=== PATIENT | male | born 1940 | race Two or more races ===

== ENCOUNTER 2016-11-17 01:58 | Emergency (ER) | payer MEDICARE, OTHER ==
[~2016-11-17] VITALS: Ht 144.8 cm; Wt 81.6 kg
[~2016-11-17 01:58] MED LIST: ASPI-807 PO; CLON0.1T PO; HYDR12.55 PO; LORA0.5T PO; LOSA25TA13 PO; METO-304 PO; OMEP20CA10 PO; SIMV40TA5 PO
[2016-11-17 02:16] VITALS: BP 145/85
--- NOTE | 2016-11-17 02:22 | NUR ---
UPON SITTING IN THE ROOM; PT DEMANDS "I WANNA SEE THE DOCTOR NOW AND I CANT WAIT. IF THE DOCTOR IS NOT COMING NOW THEN AM LEAVING" AND WALKED OUT.
== END 2016-11-17 02:25 | disposition left against medical advice (07) ==
LOC: ER 01:58
DX: Z53.21 Procedure and treatment not carried out due to patient leaving prior to being seen by health care provider (principal)
CPT/HCPCS: A4606; Z7610

== ENCOUNTER 2017-09-11 19:05 | Emergency (ER) | payer MEDICARE, OTHER ==
[~2017-09-11] VITALS: Ht 160 cm; Wt 79.4 kg
[~2017-09-11 19:05] MED LIST changes: -METO-304 PO; +METO-357 PO
[2017-09-11 19:07] VITALS: BP 158/86
--- NOTE | 2017-09-11 20:01 | NUR ---
Patient discharged to home in stable condition. Written and verbal after care instructions given. Patient verbalizes understanding of instruction. VSS upon discharge
== END 2017-09-11 20:01 | disposition home or self-care (01) ==
LOC: ER 19:07
DX: I10 Essential (primary) hypertension (principal); F41.9 Anxiety disorder, unspecified; E11.9 Type 2 diabetes mellitus without complications; Z79.82 Long term (current) use of aspirin
CPT/HCPCS: A4606; Z7502; Z7610

== ENCOUNTER 2017-10-10 17:37 | Emergency (ER) | payer MEDICARE, OTHER ==
--- NOTE | 2017-10-10 17:41 | NUR ---
PT WAS BB RA BUT PT REFUSED TO BE SEEN/TRIAGED
== END 2017-10-10 17:43 | disposition left against medical advice (07) ==
LOC: ER 17:40
DX: R10.9 Unspecified abdominal pain (principal); Z53.21 Procedure and treatment not carried out due to patient leaving prior to being seen by health care provider

== ENCOUNTER 2017-12-03 06:00 | Emergency (ER) | payer MEDICARE, OTHER ==
--- NOTE | 2017-12-03 06:29 | NUR ---
PT HAS WALKED OUT WITH FAMILY MEMBER AFTER BEING SEEN BY ER MD LANGFORD REFUSING CARE
== END 2017-12-03 06:31 | disposition left against medical advice (07) ==
LOC: ER 06:03
DX: R51 Headache (principal); I10 Essential (primary) hypertension; E11.9 Type 2 diabetes mellitus without complications; F41.9 Anxiety disorder, unspecified; Z79.82 Long term (current) use of aspirin

== ENCOUNTER 2022-09-25 22:22 | Emergency (ER) | payer MEDICARE, OTHER ==
[~2022-09-25] VITALS: Ht 142.2 cm; Wt 70.3 kg
[~2022-09-25 22:22] MED LIST changes: -LOSA25TA13 PO; +LOSA25TA27 PO; -OMEP20CA10 PO; +OMEP20CA15 PO; +SIMV-49 PO; -SIMV40TA5 PO
[2022-09-25 23:00] VITALS: BP 169/88
[2022-09-25] MEDS ORDERED: TDAP [DIPH/PERTUSSIS/TET] 0.5 ML VIAL IM ONE ×2 (23:26→23:30)
--- NOTE | 2022-09-26 00:35 | NUR ---
Patient discharged to home in stable condition. Written and verbal after care instructions given. Patient verbalizes understanding of instruction.
== END 2022-09-26 00:35 | disposition home or self-care (01) ==
LOC: ER 22:25
DX: S50.12XA Contusion of left forearm, initial encounter (principal); I10 Essential (primary) hypertension; E11.9 Type 2 diabetes mellitus without complications; F41.9 Anxiety disorder, unspecified; Z79.82 Long term (current) use of aspirin; Z79.899 Other long term (current) drug therapy; W01.0XXA Fall on same level from slipping, tripping and stumbling without subsequent striking against object, initial encounter; Y93.89 Activity, other specified; Y92.89 Other specified places as the place of occurrence of the external cause; Y99.8 Other external cause status
CPT/HCPCS: 73090-TC; 90715